=== PATIENT | female | born 1955 | race Caucasian/White ===

== ENCOUNTER → 2018-02-27 | Day surgery (SDC) | payer BC ==
[~2018-02-27] MED LIST: BUPIVACAINE HCL PF 0.5% 30 ML VIAL ONE; KETOROLAC TROMETHAMINE 30 MG/ML (IVP) VIAL IV PUSH ONE; LACTATED RINGER'S 1000 ML INJ 1,000 ML ONE; MIDAZOLAM HCL 2 MG/2 ML VIAL ONE; ONDANSETRON HCL 4 MG/2 ML VIAL IV PUSH ONE; PROPOFOL 200 MG/20 ML AMP IV ONE; ceFAZolin 2 GM PREMIX 50 ML ONE
--- NOTE | 2018-02-27 12:13 | RADRPT ---
EXAM DATE: 02/27/2018 11:23 AM EDT AGE/SEX: 62 years / Female INDICATIONS: Left foot hardware. CLINICAL DATA: This is the patient's initial encounter. Patient reports that signs and symptoms have been present for 1 day and indicates a pain score of Nonresponsive. MEDICAL/SURGICAL HISTORY: None. . Left foot surgery. COMPARISON: [facility], FOOT LEFT LIMITED (2VWS), 07/01/2017. . FINDINGS: 2 images from the upper abdomen obtained. 2 screws are seen through the first metatarsal. There is a new screw seen through the third metatarsal head. There appears to be new linear horizontal lucency a t the distal second metacarpal head and the proximal base of the second proximal phalanx. There is hy pertrophic change with spurring at the first MTP joint. CONCLUSION: Postoperative change as described above. Electronically signed by: Bradford Benjamin MD 02/27/2018 12:12 PM EDT
--- NOTE | 2018-03-03 23:38 | MP ---
cc: Yossi Muhammad DPM DATE OF OPERATION: 02/27/2018 PREOPERATIVE DIAGNOSIS: Left second metatarsophalangeal joint pain with painful hardware. POSTOPERATIVE DIAGNOSIS: Left second metatarsophalangeal joint pain with painful hardware. PROCEDURE PERFORMED: Left second MPJ hardware removal, with second MPJ implant arthroplasty. SURGEON: Yossi Muhammad DPM PAINT PROCESS ENGINEER: Esperanza Latif SPECIMENS: None. ESTIMATED BLOOD LOSS: Less than 30 mL. TOURNIQUET TIME: 56 minutes at the setting of 250 mmHg about the patient's ankle, left. ANESTHESIA: 20 mL of 0.25% Marcaine plain infiltrated into the area. IMPLANTS: RTS MTP implant size 3, with silicone elastomer was implanted. DISPOSITION AND RECOMMENDATIONS: Discharge home when stable per same day surgery criteria. Heel weight bear only. JUSTIFICATION FOR PROCEDURE: This is a pleasant female who underwent a plantar plate repair and hammertoe surgery. However, she unfortunately dislocated at the second MPJ after surgery and now has a chronic attenuation. We devised a plan to move forward with either second MPJ fusion or implant and the patient wished to have motion of the toe at this time. We recommended an implant to serve as a spacer, however, the toe still may have lack of purchase and there may be chronic stiffness, burning and tingling. The patient understood. No guarantees given or implied regarding the outcome. PROCEDURE IN DETAIL: Under mild sedation, the patient was brought in the operating room, placed on the operating table in supine position. Upon the induction of general anesthesia, local anesthesia was obtained about the second ray utilizing standard block fashion. The foot was then scrubbed, prepped and draped in the usual sterile fashion. The foot was elevated, exsanguinated and the previously placed mid calf tourniquet was inflated to 250 mmHg. An incision was made over the dorsal aspect of the second digit PIPJ, slight curvilinear over the second MPJ. Sharp and blunt dissection was carried down medial to the extensor hallucis longus tendon. Subperiosteal dissection took place and there was noted to be chronic subluxation, the proximal phalanx sitting on top of the second metatarsal head, being careful not to remove too much bone. The second metatarsal head was removed down to the cortical bone as well as the base of the proximal phalanx. Reamers were then used to allow for implantation of a stemmed implant, the trial sizer. There was good alignment. There was no subluxation upon range of motion. A size 3 implant was then implanted. Periosteum was then closed. Deep closure took place utilizing Vicryl. Skin was closed utilizing nylon. Fluoroscopy was used throughout the case to be certain that there was no subluxation or malalignment. Prior to the osteotomy for the implant, a screw was then removed of the dorsal aspect of the second metatarsal without any complications. Before final putting in the implant, we were certain that there was no plantar bony prominence to cause any recurrent callusing. Upon releasing the tourniquet, there was a prompt hyperemic response to all digits without any delayed capillary refill time. A bulky bandage applied. The patient was transferred over to PACU with all vital signs stable. She is heel weight bear only. She will ice, elevate. I will see the patient in 3-5 days. ALEJANDRA Whiting , 07:11 PM , 11:35 PM
== END | disposition home or self-care (01) ==
LOC: ESDC 06:35
PROVIDERS: ATTEND Podiatrist Foot & Ankle Surgery
DX: M25.572 Pain in left ankle and joints of left foot (principal); T84.84XA Pain due to internal orthopedic prosthetic devices, implants and grafts, initial encounter
CPT/HCPCS: 01480; 28899; 73620; 76000; C1713; J0690; J1885; J2250; J2405; J3010; J7120